=== PATIENT | female | born 1985 | race Caucasian/White ===

== ENCOUNTER 2019-07-11 16:50 | Inpatient (IN) | payer SELFPAY ==
[2019-07-11] MEDS ORDERED: HYDROcodone/ACETAMIN 5-325 MG* 1 TAB PO ONE (17:37)
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
[2019-07-11 18:12] LABS: ABS Lymphocytes 1.7 10^3/ul (1.0-4.8); ABS Monocytes 0.3 10^3/ul (0-0.8); ABS Neutrophils 1.1 10^3/ul (1.5-7.7); Eosinophil % 1.3 %; Hematocrit 37 % (35-47); Hemoglobin 12.1 g/dL (12.0-16.0); Lymphocyte % 52.9 %; Mean Corpuscular HGB Conc 33 g/dL (31-36); Mean Corpuscular Hemoglobin 31 pg (27-31); Mean Corpuscular Volume 95 fL (80-97); Mean Platelet Volume 8.9 fL (7.4-10.4); Nucleated Red Blood Cells % 0.3; Platelet Count 224 10^3/uL (150-450); Red Blood Count 3.85 10^6 /uL (3.70-4.87); Red Cell Distribution Width 13 % (10-15); White Blood Count 3.2 10^3/uL (3.5-10.8)
[2019-07-11 18:29] LABS: Albumin 3.6 g/dL (3.2-5.2); Albumin/Globulin Ratio 1.3 (1-3); BUN/Creatinine Ratio 13.2 (8-20); C Reactive Protein 1.36 mg/L (<8.01); Calcium 8.1 mg/dL (8.6-10.3); EGFR African American 121.3 (>60); EGFR Non-African American 100.3 (>60); Globulin 2.8 g/dL (2-4); Potassium 3.8 mmol/L (3.5-5.0); Total Bilirubin 0.2 mg/dL (0.2-1.0); Total Protein 6.4 g/dL (6.4-8.9)
[2019-07-11] MEDS ORDERED: Ondansetron INJ* 2 MG/ML VIAL IV PRN (19:22)
[2019-07-11] MEDS ORDERED: Acetaminophen TAB* 325 MG PO PRN (19:22)
[2019-07-11] MEDS ORDERED: diPHENhydraMINE IV* 50 MG/ML 1 ml VIAL (BENADRYL) IV PRN (19:22)
[2019-07-11] MEDS ORDERED: diPHENhydraMINE PO* 25 MG PO PRN (19:22)
[2019-07-11] MEDS ORDERED: Ondansetron ODT TAB* 4 MG PO PRN (19:22)
[2019-07-11] MEDS ORDERED: Ibuprofen TAB* 800 MG PO PRN (19:32)
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
[2019-07-11] MEDS: traMADol TAB* 50 MG PO PRN (22:42)
[2019-07-11] MEDS: Lactated Ringers 1000 ML Bag* 1,000 ML IV SCH (22:46)
[2019-07-11] MEDS: ceFAZolin 1 GM ADVAN(*) 1 GM in NS 0.9% 50 ML* 50 ML IVPB SCH (22:49)
[2019-07-12] MEDS: traMADol TAB* 50 MG PO PRN ×3 (02:59→13:05)
[2019-07-12] MEDS: Ketorolac INJ* 15 MG/ML 1 ML VIAL IV PUSH PRN ×2 (05:00→11:08)
[2019-07-12] MEDS: ceFAZolin 1 GM ADVAN(*) 1 GM in NS 0.9% 50 ML* 50 ML IVPB SCH ×2 (05:03→13:01)
[2019-07-12] MEDS: Lactated Ringers 1000 ML Bag* 1,000 ML IV SCH (10:27)
[2019-07-12] MEDS ORDERED: Lidocaine 1% INJ* 10 MG/ML 30 ML SDV ONE (15:50)
--- NOTE | 2019-07-12 15:54 | PN ---
Progress Note - Progress Note Date of Service: 07/12/19 Note: Pt seen and examined. NPO for I and D with removal of pin. Plan to go home today with oral abx and follow up with hand colleagues. Reviewed risks and benefits and plan with patient. Plan is for R wrist removal of pin and I and D of pin hole.
[2019-07-12] MEDS ORDERED: Midazolam* 1 MG/ML 5 ML VIAL (5 MG) ONE ×2 (16:02→16:15)
[2019-07-12] MEDS ORDERED: fentaNYL* 50 MCG/ML 2 ML VIAL (100 MCG VIAL) ONE (16:09)
[2019-07-12] MEDS ORDERED: Propofol* 10 MG/ML 20 ML BTL ONE (16:15)
[2019-07-12] MEDS ORDERED: KETAMINE HCL* 50 MG/ML 10 ML VIAL ONE (16:17)
[2019-07-12] MEDS ORDERED: ceFAZolin 1 GM ADVAN(*) 1 GM ADDV.VIAL IVPB ONE (16:26)
[2019-07-12] MEDS ORDERED: ROPIVACAINE 5 MG/ML 30 ML BTL (0.5%) ONE (16:26)
[2019-07-12] MEDS ORDERED: Bupivacaine 0.5% SDV PF* 30ML VIAL ONE (16:28)
[2019-07-12 18:17] VITALS: BP 126/100
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
--- NOTE | 2019-07-25 12:58 | DS ---
Orthopedic Discharge Summary - Discharge Summary Date of Admission:07/11/19 Date of Discharge: [] Date of Surgery: [] Attending Orthopedic Provider: [] Pre-operative Diagnosis: [] Operative Procedure: [] Disposition of Patient: [] Condition of Patient: [] History: JUSTICE MEJIA is a 34 year old F with years of increasingly severe [ ] pain. Patient has failed conservative management and has elected to undergo a [] total [] replacement Hospital Course: JUSTICE was admitted to [facility] on 07/11/19. Patient underwent a [] without complication followed by a brief recovery in PACU and transfer to the Short Stay Surgical Unit in stable condition. Our hospitalist service, physical therapy and occupational therapy also participated in this patients care. Post-op day 1: patient was alert and in no acute distress. Dressing was clean, dry and intact. Operative extremity dorsiflexion and plantarflexion intact, sensation intact to light touch distally , DP2+. Post-op day two: dressing was changed, incision was clean, dry and intact. Patient was deemed to be medically and orthopedically stable for discharge. Physical therapy goals were met. Home Medications Medication Instructions Recorded Confirmed Type Cephalexin CAP* [Keflex CAP*] 500 mg PO QID #28 cap 07/12/19 Rx traMADol TAB* [Ultram*] 50 mg PO Q4H PRN #18 tab MDD 6 07/12/19 Rx
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
--- NOTE | 2019-08-21 14:09 | DS ---
DISCHARGE SUMMARY: ADDENDUM: DATE OF ADMISSION: 07/11/19 DATE OF DISCHARGE: 07/12/19 ADMITTING CONDITION: Stable. DISCHARGE CONDITION: Stable. DISCHARGED TO: Home with plan for follow up [id number]/[facility] #: [id number] MTDD
== END 2019-07-12 19:15 | disposition home or self-care (01) | DRG 502 ==
LOC: ED 16:50 → SSU 19:22
PROVIDERS: ADMIT Orthopaedic Surgery; ATTEND Orthopaedic Surgery
PROC: 0PP Upper Bones, Removal (ICD-10-PCS; 2019-07-12)
PROC: 0PP Upper Bones, Removal (ICD-10-PCS; 2019-07-12)
PROC: 0J9G0ZZ Drainage of Right Lower Arm Subcutaneous Tissue and Fascia, Open Approach (ICD-10-PCS; principal; 2019-07-12 16:45)
DX: T84.612A Infection and inflammatory reaction due to internal fixation device of right radius, initial encounter (principal); F17.200 Nicotine dependence, unspecified, uncomplicated; T84.614A Infection and inflammatory reaction due to internal fixation device of right ulna, initial encounter; Y65.8 Other specified misadventures during surgical and medical care; Z72.89 Other problems related to lifestyle; Y92.9 Unspecified place or not applicable
CPT/HCPCS: 36415; 80053; 81025; 83605; 85025; 86140; 87040; 88300; 99284; A9270-GY; J0690; J1885; J2250; J2704; J2795; J3010; J3490